=== PATIENT | male | born 1950 | race Asian ===

== ENCOUNTER → 2017-02-08 | Outpatient (CLI) | payer MEDICARE, OTHER ==
--- NOTE | 2017-02-08 11:11 | RADIOLOGY REPORT (SQ) ---
EXAM DESCRIPTION: U/S RETROPERITON (RENAL/AORTA) COMPLETED DATE/TIME: 02/08/2017 10:04 am REASON FOR STUDY: CYST OF KIDNEY (N28.1) N28.1 CYST OF KIDNEY, ACQUIRED COMPARISON: None. TECHNIQUE: Dynamic and static grayscale images acquired of the kidneys and bladder and recorded on P ACS. Additional selected color Doppler and spectral images recorded. LIMITATIONS: None. FINDINGS: RIGHT KIDNEY: Normal size, 9.7 cm. Normal echogenicity. No solid or suspicious masses. Mu ltiple cysts. The largest measures 5 cm. No hydronephrosis. No calcifications. LEFT KIDNEY: Normal size. Normal echogenicity. No solid or suspicious masses. Multiple cysts. The largest measures 3 cm. No hydronephrosis. No calcifications. BLADDER: No masses. OTHER FINDINGS: The prostate gland is within normal limits in size, but protrudes into the base of th e bladder. IMPRESSION: 1. Renal cysts. No other abnormality is seen the kidneys. L2. There is nodular protrusion of the prostate gland into the base of the bladder. TECHNICAL DOCUMENTATION: JOB ID: [id number] All Rights Reserved
== END ==
LOC: RAD 09:18
PROVIDERS: ATTEND Urology
DX: N28.1 Cyst of kidney, acquired (principal)
CPT/HCPCS: 76770